=== PATIENT | female | born 1950 | race Caucasian/White ===

== ENCOUNTER → 2022-08-02 | Outpatient (CLI) | payer MEDICARE, OTHER ==
--- NOTE | 2022-08-02 10:19 | MR ---
MRI pancreas and abdomen with contrast. HISTORY: Pancreatic cyst. COMPARISON: None. TECHNIQUE: Multiecho multiplanar images of the abdomen and pancreas were obtained with contrast. FINDINGS: In the body and head of the pancreas, multiple cysts are identified the largest of which is approxim ately 9 to 10 mm. 2 or 3 other adjacent tiny cysts are seen. There are no solid pancreatic masses or pancreatic enhancement. The liver is unremarkable without focal mass or organomegaly. There are surgical absence of the gallbladder and no biliary ductal dilatation. There are no focal masses or enlargement of the adrenal glands or spleen. The kidneys excrete contrast promptly and symmetrically. There are multiple renal cysts in particular there is a very large exophytic cyst of the superior pole the left kidney measuring approximately 10 cm in size. Caliber the abdominal aorta is normal. The bowel loops are normal in caliber. No inflammatory changes are identified in the mesentery. There is no free intraperitoneal air or fluid. IMPRESSION: 1. Multiple small pancreatic cysts in the body and head of the pancreas the largest of which is 90 10 mm. There are no solid pancreatic masses and no pancreatic pathological enhancement.. 2. Multiple renal cysts with a very large exophytic cyst of the superior pole of the left kidney
== END | disposition home or self-care (01) ==
LOC: RADMRIMAIN 08:51
PROVIDERS: ATTEND Internal Medicine Gastroenterology
DX: K86.2 Cyst of pancreas (principal); N28.1 Cyst of kidney, acquired
CPT/HCPCS: 74183; A9585

== ENCOUNTER → 2022-12-09 | Outpatient (CLI) | payer MEDICARE, OTHER ==
--- NOTE | 2022-12-09 10:44 | BD ---
EXAMINATION TYPE: Axial Bone Density DATE OF EXAM: 12/09/2022 CLINICAL HISTORY: 72 years old Female. ICD-10 CODE: Z78.0 POST MENOPAUSAL Height: 63in Weight: 164lb FRAX RISK QUESTIONS: Secondary Osteoporosis: RISK FACTORS HISTORY OF: Active: yes Postmenopausal woman: yes Take estrogen and/or progesterone medications: none current, pt unsure about in the past MEDICATIONS: Thyroid Medications: Which medication: Synthroid How Long: about 10 years Additional Medications: cardiac med, cholesterol med, vitamin d Additional History: EXAM MEASUREMENTS: Bone mineral densitometry was performed using the [employer] Android System. Bone mineral density as measured about the Lumbar spine is: ----- L1-L4(G/cm2): 1.134 T Score Values are as follows: ----- L1: -0.8 ----- L2: -1.2 ----- L3: 1.0 ----- L4: -0.8 ----- L1-L4: -0.4 Z Score Values are as follows: ----- L1: 0.6 ----- L2: 0.2 ----- L3: 2.4 ----- L4: 0.6 ----- L1-L4: 1.0 First dexa at [facility] Bone mineral density about the R hip (g/cm2): 0.881 Bone mineral density about the L hip (g/cm2): 0.833 T Score values are as follows: -----R Neck: -1.7 -----L Neck: -1.7 -----R Total: -1.0 -----L Total: -1.4 Z Score values are as follows: -----R Neck: -0.2 -----L Neck: -0.1 -----R Total: 0.3 -----L Total: 0.0 FRAX%s: The graph provided illustrates a 11.1% chance for a major osteoporotic fx and a 2.1% chance f or the hips probability for fx in 10 years time. IMPRESSION: Osteopenia (T Score between -2.5 and -1). There is slightly increased risk of fracture and the patient may be considered for treatment. Re-Screen 2-5 years. NOTE: T-SCORE=SD OF THE YOUNG ADULT MEAN.
--- NOTE | 2022-12-10 09:12 | MM ---
Reason for Exam: Screening (asymptomatic). Last mammogram was performed 1 year(s) and 3 month(s) ago. Patient History: Menarche at age 11. First Full-Term at age 17. Postmenopausal. Cyst Aspiration on the Left side. Maternal aunt had breast cancer at or over age 50. Risk Values: Penelope 5 year model risk: 1.4%. NCI Lifetime model risk: 3.6%. Prior Study Comparison: 09/17/2020 Bilateral Screening Mammogram, Unknown. 09/19/2021 Bilateral Screening Mammogram, Unknown. Tissue Density: The breast tissue is heterogeneously dense. This may lower the sensitivity of mammography. Findings: Analyzed By CAD. There are stable small circumscribed round masses bilaterally redemonstrated. There is however enlarging 8 mm round mass in the anterior right breast centrally. Overall Assessment: Incomplete: need additional imaging evaluation, BI-RAD 0 Management: Diagnostic Breast Ultrasound of the right breast. Targeted ultrasound right breast. Electronically signed and approved by: Rober Shipley M.D.
== END | disposition home or self-care (01) ==
LOC: RADMAMWWP 07:20
PROVIDERS: ATTEND Family Medicine
DX: Z12.31 Encounter for screening mammogram for malignant neoplasm of breast (principal); M85.89 Other specified disorders of bone density and structure, multiple sites; Z78.0 Asymptomatic menopausal state; Z80.3 Family history of malignant neoplasm of breast
CPT/HCPCS: 77063; 77067; 77080

== ENCOUNTER → 2022-12-12 | Outpatient (CLI) | payer MEDICARE, OTHER ==
--- NOTE | 2022-12-12 11:20 | USB ---
Reason for Exam: Additional evaluation requested from abnormal screening. Patient History: Menarche at age 11. First Full-Term at age 17. Postmenopausal. Cyst Aspiration on the Left side. Maternal aunt had breast cancer at or over age 50. Risk Values: Penelope 5 year model risk: 1.4%. NCI Lifetime model risk: 3.6%. Prior Study Comparison: 09/17/2020 Bilateral Screening Mammogram, Unknown. 09/19/2021 Bilateral Screening Mammogram, Unknown. 12/09/2022 Bilateral MG 3D screening mammo w/cad, [facility]. Findings: The periareolar of the right breast, the axilla of the right breast and the retroareolar of the right breast were scanned. Targeted ultrasound of the right breast was obtained with additional evaluation of the nipple and axilla tail.. Ductal ectasia at the nipple demonstrated without intraductal lesion identified. There is a round circumscribed anechoic cyst at 7:00 2 cm from the nipple measuring up to 0.4 cm without internal color flow. There is a cyst/cluster of cysts in the right breast 1:00 to size of the nipple measuring 0.8 x 0.5 x 0.9 cm without internal color flow.Targeted ultrasound of the right breast was obtained with additional evaluation of the nipple and axilla tail.. Ductal ectasia at the nipple demonstrated without intraductal lesion identified. There is a round circumscribed anechoic cyst at 7:00 2 cm from the nipple measuring up to 0.4 cm without internal color flow. There is a cyst/cluster of cysts in the right breast 1:00 2 cm from the nipple measuring 0.8 x 0.5 x 0.9 cm without internal color flow. Overall Assessment: Benign, BI-RAD 2 Management: Screening Mammogram of both breasts in 1 year. A clinical breast exam by your physician is recommended on an annual basis and results should be correlated with mammographic findings. This exam should not preclude additional follow-up of suspicious palpable abnormalities. Results were given to the patient verbally at the time of exam. Electronically signed and approved by: Bakari Bailey D.O.
== END | disposition home or self-care (01) ==
LOC: RADUSWWP 10:36
PROVIDERS: ATTEND Family Medicine
DX: R92.8 Other abnormal and inconclusive findings on diagnostic imaging of breast (principal); Z78.0 Asymptomatic menopausal state; Z80.3 Family history of malignant neoplasm of breast

== ENCOUNTER → 2023-07-22 | Outpatient (CLI) | payer MEDICARE, OTHER ==
--- NOTE | 2023-07-25 10:55 | MR ---
EXAMINATION TYPE: MR pancreas wo/w con DATE OF EXAM: 07/22/2023 9:34 AM CLINICAL INDICATION:Female, 72 years old with history of K86.2 CYST OF PANCREAS; [facility], Pancreatic cyst s, follow up comparison to prior MRI. COMPARISON: MRI 08/02/2022. TECHNIQUE: Multiplanar multi-sequence imaging was performed without contrast. Post contrast imaging was performed. Post IV contrast subtraction images were also submitted for review. IV Contrast: 7.5 cc Gadavist FINDINGS: LOWER CHEST: No gross irregularity. ABDOMEN Liver: No evidence for hepatic steatosis or cirrhosis. Gallbladder and Bile ducts: No evidence for ductal dilation, or biliary stricture or evidence of chol edocholithiasis. The gallbladder is within normal limits. Pancreas: No ductal dilation. No evidence for solid mass. High T2 signal cystic lesions throughout th e pancreatic neck the largest measuring up to 11 mm is similar given differences in slice selection c ompared to prior on 08/02/2022. No significant postcontrast enhancement identified. Spleen: Normal for size. Adrenal glands: Unremarkable. Kidneys: High T2 signal cysts are seen throughout the kidneys. One on the right demonstrates thin sep tation. No abnormal postcontrast enhancement identified. No evidence for obstructive uropathy. No dao picious renal masses. Stomach and Bowel: No evidence for bowel wall thickening or evidence for obstruction. Scattered colon ic diverticula are present. Small hiatal hernia. Peritoneum: No evidence of pneumoperitoneum or free fluid. Vasculature: Aneurysmal dilation of the right renal artery with saccular aneurysm measuring 19 x 17 x 22 mm. This may be fractionally larger compared to prior where it measured 19 x 15 x 22 mm alternati vely the differences may be due to slice selection MRI technique. Musculoskeletal: The osseous structures appear intact. Lymph Nodes: No gross evidence for lymphadenopathy. Abdominal wall: Fat-containing umbilical hernia. IMPRESSION: 1. Pancreatic cysts which are not significantly changed compared to prior. No abnormal postcontrast enhancement. Findings favored sequela prior. The transverse intraductal papillary mucinous neoplasms. Consider surveillance MRI MRCP in one year with IV contrast. 2. 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 Vascular surgery consultat ion recommended. 3. Bilateral Bosniak type I-type II renal cysts. 4. Colonic diverticulosis. 5. Small hiatal hernia.
== END | disposition home or self-care (01) ==
LOC: RADMRIMAIN 08:27
PROVIDERS: ATTEND Internal Medicine Gastroenterology
DX: K86.2 Cyst of pancreas (principal); N28.1 Cyst of kidney, acquired; K57.30 Diverticulosis of large intestine without perforation or abscess without bleeding; K44.9 Diaphragmatic hernia without obstruction or gangrene
CPT/HCPCS: 74183; A9585

== ENCOUNTER → 2023-09-21 | Outpatient (CLI) | payer MEDICARE, OTHER ==
[2023-09-21 13:53] LABS: African American GFR (CKD) >90 (>60 ml/min/1.73 sqM); Blood Urea Nitrogen 20 mg/dL (7-17); Non-African American GFR(CKD) 90 (>60 ml/min/1.73 sqM)
--- NOTE | 2023-09-21 14:52 | CT ---
EXAMINATION TYPE: CT angio chest CT DLP: 639.30 mGycm, Automated exposure control for dose reduction was used. DATE OF EXAM: 09/21/2023 2:33 PM COMPARISON: MRI 07/22/2023. CLINICAL INDICATION:Female, 73 years old with history of I71.10 THORACIC AORTIC ANEURYSM; Thoracic ao rtic aneurysm w/out rupture TECHNIQUE/CONTRAST: CTA scan of the thorax is performed with IV Contrast, patient injected with 100 mL of Isovue 370, MIP images are created and reviewed these are created on a separate workstation.. FINDINGS: Lungs/Pleura: No evidence of focal consolidation, pleural effusion or pneumothorax. Airway: Large airways are patent. Heart: Heart is within normal limits for size. Vasculature: No evidence for intramural hematoma on noncontrast imaging. No evidence of intimal flap to suggest dissection. No aneurysm identified. Scattered atherosclerotic disease. Saccular aneurysm i s some involving the right renal artery with peripheral calcification measuring up to 19 mm. Mediastinum: No gross evidence of adenopathy. Musculoskeletal: No acute osseous abnormalities Soft Tissues: Unremarkable. Lower neck: No significant findings. Upper Abdomen: Bilateral renal cyst partially visualized. What is visualized and is similar to MRI the gallbladder surgically absent. IMPRESSION: 1. No evidence for aortic aneurysm. The ascending and descending thoracic aorta are within normal li mits for size. No evidence for occlusion or pulmonary embolus. No evidence for dissection. 2. Right renal artery saccular aneurysm measuring up to 19 mm as seen on prior MRI. Vascular surgery consultation recommended for management. Follow up recommendations for incidental pulmonary nodules, if there are any, are per [employer] or [employer].
== END | disposition home or self-care (01) ==
LOC: RADCTMAIN 06-29 14:04
PROVIDERS: ATTEND Internal Medicine Interventional Cardiology
DX: I71.10 Thoracic aortic aneurysm, ruptured, unspecified (principal); I72.2 Aneurysm of renal artery
CPT/HCPCS: 82565; 84520; 71275; 36415; Q9967

== ENCOUNTER → 2023-12-21 | Outpatient (CLI) | payer MEDICARE, OTHER ==
--- NOTE | 2023-12-22 19:28 | MM ---
Reason for Exam: Screening (asymptomatic). Last screening mammogram was performed 12 month(s) ago. Patient History: Menarche at age 11. First Full-Term at age 17. Hysterectomy at age 35. Postmenopausal. Patient used Hormonal Contraceptives for 7 years. Cyst Aspiration on the Left side. Maternal aunt had breast cancer at or over age 50. Risk Values: Penelope 5 year model risk: 1.4%. NCI Lifetime model risk: 3.4%. Prior Study Comparison: 09/17/2020 Bilateral Screening Mammogram, Unknown. 09/19/2021 Bilateral Screening Mammogram, Unknown. 12/09/2022 Bilateral MG 3D screening mammo w/cad, [facility]. Tissue Density: There are scattered areas of fibroglandular density. Findings: Analyzed By CAD. Bilateral chronic nodularity. There is no suspicious group of microcalcifications or new suspicious mass in either breast. Overall Assessment: Benign, BI-RAD 2 Management: Screening Mammogram of both breasts in 1 year. . Patient should continue monthly self-breast exams. A clinical breast exam by your physician is recommended on an annual basis. This exam should not preclude additional follow-up of suspicious palpable abnormalities. Note on Penelope scores and lifetime risk: 1. A Penelope score greater than 3% is considered moderate risk. If this is the case, consider specialist referral to assess eligibility for a risk reducing agent. 2. If overall lifetime risk for the development of breast cancer is 20% or higher, the patient may qualify for future screening with alternating mammogram and breast MRI. Electronically signed and approved by: Jere Morales M.D. Radiologist
== END | disposition home or self-care (01) ==
LOC: RADMAMWWP 10:09
PROVIDERS: ATTEND Family Medicine
DX: Z12.31 Encounter for screening mammogram for malignant neoplasm of breast (principal); Z78.0 Asymptomatic menopausal state; Z80.3 Family history of malignant neoplasm of breast
CPT/HCPCS: 77063; 77067

== ENCOUNTER 2024-03-14 07:15 | Day surgery (SDC) | payer MEDICARE, OTHER ==
[2024-03-14] MEDS: EMPTY BAG 1 BAG with SODIUM CHLORIDE 0.9% 1,000 ML IV SCH (07:22)
[2024-03-14] MEDS: IV FLUID CONTINUATION 1,000 ML IV ONE (07:23)
[2024-03-14 07:51] LABS: Basophils % (A) 0 %; Eosinophils # (A) 0.1 k/uL (0-0.7); Eosinophils % (A) 1 %; HGB 14.6 gm/dL (11.4-16.0); Lymphocytes # (A) 1.1 k/uL (1.0-4.8); Lymphocytes % (A) 14 %; MCH 29.3 pg (25.0-35.0); MCHC 31.8 g/dL (31.0-37.0); MCV 91.9 fL (80.0-100.0); Mean Platelet Volume 7.9; Monocytes # (A) 0.1 k/uL (0-1.0); Monocytes % (A) 1 %; Neutrophils # (A) 6.9 k/uL (1.3-7.7); Neutrophils % (A) 84 %; Platelet Count 350 k/uL (150-450); RDW 13.4 % (11.5-15.5); WBC 8.3 k/uL (3.8-10.6)
[2024-03-14] MEDS ORDERED: LIDOCAINE 1% INJ 10MG/ML (20 ML MDV) ONE (08:18)
[2024-03-14] MEDS ORDERED: HEPARIN SODIUM 1,000 UN/ML (10ML VL) ONE (08:24)
[2024-03-14] MEDS ORDERED: fentaNYL (PF) 50 MCG/ML 2 ML AMP ONE (08:24)
[2024-03-14] MEDS ORDERED: diphenhydrAMINE 50 MG/ML 1 ML VIAL ONE (08:25)
[2024-03-14 08:26] LABS: African American GFR (CKD) >90 (>60 ml/min/1.73 sqM); Anion Gap 10 mmol/L; Blood Urea Nitrogen 13 mg/dL (7-17); Carbon Dioxide 21 mmol/L (22-30); Chloride 111 mmol/L (98-107); Glucose 165 mg/dL (74-99); Non-African American GFR(CKD) >90 (>60 ml/min/1.73 sqM); Potassium 3.9 mmol/L (3.5-5.1); Sodium 142 mmol/L (137-145)
[2024-03-14] MEDS: diphenhydrAMINE 50 MG/ML 1 ML VIAL IVP ONE (08:37)
[2024-03-14] MEDS: MIDAZOLAM 2 MG/2 ML VIAL IVP ONE (08:37)
[2024-03-14] MEDS: fentaNYL (PF) 50 MCG/ML 2 ML AMP IVP ONE (08:37)
[2024-03-14] MEDS: LIDOCAINE 1% INJ 10MG/ML (20 ML MDV) SQ ONE (08:37)
[2024-03-14] MEDS: HEPARIN SODIUM 1,000 UN/ML (10ML VL) IV ONE (08:55)
[2024-03-14] MEDS: IOPAMIDOL-370 200ML BTL INJ ONE ×2 (09:59)
--- NOTE | 2024-03-14 10:25 | IR ---
EXAMINATION TYPE: IR angio renal RT Intraoperative/procedural fluoroscopic services were provided. CLINICAL INDICATION:Female, 73 years old with history of RT RENAL ANGIO, 19.1 MINS FLT, 1.2MGY; , [facility] Total fluoroscopy time is 19.1 min. DAP: 30.4 Gycm2 Please see the operative/procedural note for further details.
--- NOTE | 2024-03-14 10:30 | P.OP ---
Date of Procedure: 03/14/24 Preoperative Diagnosis: Right renal artery aneurysm 2.9 cm Postoperative Diagnosis: Same Procedure(s) Performed: Ultrasound-guided right common femoral artery access Aortogram Selective right renal artery angiogram second order Coil embolization of right renal artery aneurysm with Azur CX coils x 5 Percutaneous closure with Vascade device Conscious sedation- 1 hour and 37 minutes Implants: CX coil 20 mm x 39 cm CX coil 8 mm x 24 cm x4 Anesthesia: local Surgeon: Ko Antunez Estimated Blood Loss (ml): 5 Pathology: none sent Condition: stable Disposition: PACU Indications for Procedure: 73-year-old female with history of right renal artery aneurysm measuring 2.9 cm on previous MRI imaging presents to the hospital for elective aortogram, selective renal artery angiogram and possible coil embolization versus stenting. Operative Findings: Large renal artery aneurysm on the right just after a branch point with multiple outflow branches at the mouth of the aneurysm Description of Procedure: After written and informed consent was obtained for the patient and all risk, benefits and complications were described the patient was brought to the Communications Systems Engineer and laid in a supine position. The area of the groins were prepped and draped in usual sterile fashion. Timeout was performed in normal fashion with all parties in agreement. Local anesthetic was then infused overlying the right femoral artery. Under ultrasound guidance the right common femoral artery was accessed with a multipurpose needle and a 6 Hungarian sheath was placed in normal fashion utilizing Seldinger technique. Patient was then administered 3000 units of heparin. 035 Glidewire was then placed into the aorta followed by pigtail catheter. Aortogram was obtained demonstrating patent aorta and bilateral renal arteries with right renal artery large aneurysm noted distally at the hilum/branch point for the inferior and superior lobes. Bilateral iliac arteries are patent and without any significant calcific disease or stenosis. Utilizing a Cobra catheter after the pigtail catheter was removed the right renal artery was accessed. Guidewire was then placed past the aneurysm and the Cobra catheter was placed within the right renal artery. Selective angiogram was then obtained demonstrating patent renal artery with large 2.9 cm renal aneurysm noted with branch points coming off the mouth of the aneurysm both to the superior and inferior lobe. The Cobra catheter was then placed across the aneurysm and a Ferrer wire was placed. 6 Hungarian destination catheter 65 cm was then placed into the renal artery in normal fashion after removal of the short 6 Hungarian sheath. A glide catheter was then placed within the aneurysmal sac and sac angiogram was obtained. There was flow coming from the top of the aneurysm sac to multiple vessels and therefore unable to place a covered stent due to the likelihood of occluding the inferior lobe of the kidney. Due to this a glide catheter was then placed into the aneurysmal sac and coil embolization was then performed at the apex of the sac moving up towards the mouth with Azur CX coils. 5 coils were utilized in its entirety and good sealing of the aneurysm was noted with maintaining flow to the inferior and superior lobe of the kidney. Once completed all wires and catheters were removed. The sheath was then replaced with a short 6 Hungarian sheath and a Vascade closure device was placed in normal fashion for hemostasis. Pressure was placed as well. Once hemostatic the area was cleansed and dressings were placed. The patient tolerated the procedure well and had palpable DP and PT pulses at the conclusion of the procedure.
[2024-03-14 10:41] VITALS: RESP 16
[2024-03-14 13:52] VITALS: BP 155/81; PULSE 96
== END 2024-03-14 14:15 | disposition home or self-care (01) ==
LOC: CATHCVL 07:15
PROVIDERS: ATTEND Surgery
DX: I72.2 Aneurysm of renal artery (principal)
CPT/HCPCS: 37242; 80048; 85025; C1769 ×3; C1894 ×2; C1725; J2250; J1200; J2001; J3010; J1644; Q9967

== ENCOUNTER → 2024-03-22 | Outpatient (CLI) | payer MEDICARE, OTHER ==
[2024-03-22 16:34] LABS: Albumin 4.2 g/dL (3.8-4.9); BUN/Creat Ratio 17.71 Ratio (12.00-20.00); Blood Urea Nitrogen 12.4 mg/dL (9.0-27.0); Calcium 9.1 mg/dL (8.7-10.3); Carbon Dioxide 23.7 mmol/L (21.6-31.8); Chloride 107 mmol/L (96-109); Glucose 92 mg/dL (70-110); Potassium 4.1 mmol/L (3.5-5.5); Sodium 141 mmol/L (135-145)
== END | disposition home or self-care (01) ==
LOC: LABWHC1 11:48
PROVIDERS: ATTEND Surgery
DX: Z13.228 Encounter for screening for other metabolic disorders (principal); N28.9 Disorder of kidney and ureter, unspecified; M54.50 Low back pain, unspecified
CPT/HCPCS: 36415; 80069

== ENCOUNTER → 2024-07-25 | Outpatient (CLI) | payer MEDICARE, OTHER ==
--- NOTE | 2024-07-25 15:27 | MR ---
EXAMINATION TYPE: MR pancreas wo/w con DATE OF EXAM: 07/25/2024 2:54 PM INDICATION: Patient age:Female; 73 years old; Reason for study: K86.2 CYST OF PANCREAS; [facility]. COMPARISON: MR pancreas 07/22/2023, 08/02/2022 TECHNIQUE: Multiplanar multi-sequence imaging was performed without and with IV contrast. The patien t was given 7 ccs of Gadavist intravenously and dynamic imaging was performed. Post IV contrast subtr action images were also submitted for review. FINDINGS: LOWER CHEST: No gross irregularity. ABDOMEN Liver: No evidence for hepatic steatosis or cirrhosis. Gallbladder and Bile ducts: No evidence for ductal dilation, or biliary stricture or evidence of chol edocholithiasis. The gallbladder is surgically absent. Common bile duct is normal caliber measuring 7 mm at the pancreatic head. Mild stable prominence of the common hepatic duct measuring up to 12 mm w hich is likely related to cholecystectomy changes. Pancreas: No ductal dilation. No evidence for solid enhancing mass. Redemonstration of T2 hyperintens e signal cystic lesions throughout the pancreatic neck. Stable size of pancreatic neck cystic lesion measuring up to 12 mm (series 701, image 34). Increased size of pancreatic head cystic lesion measuri ng 14 mm (series 701, image 32). Previously measured 10 mm. Increasing size of pancreatic body 7 mm T 2 hyperintense lesion (series 301, image 11), previously 4 mm. Remaining T2 hyperintense lesions are relatively stable from prior exam. No enhancement or mural nodularity identified within either of the se lesions. Spleen: Normal for size. Adrenal glands: Unremarkable. Kidneys: Several stable T2 hyperintense thin wall cysts are seen throughout the kidneys. One on the r ight demonstrates thin septation again. Largest cyst within the superior pole of the left kidney emerald ures up to 10.2 cm. Largest within the superior pole of the right kidney with thin septation measures up to 5.7 cm. No abnormal postcontrast enhancement identified. No evidence for obstructive uropathy. No suspicious renal masses. Stomach and Bowel: No evidence for bowel wall thickening or evidence for obstruction. Scattered colon ic diverticula are present. Small hiatal hernia. Peritoneum: No evidence of pneumoperitoneum or free fluid. Vasculature: Aneurysmal dilation of the right renal artery with saccular aneurysm measuring 19 x 20 x 24 mm, previously 19 x 17 x 22 mm. Retroaortic left renal vein. No abdominal aortic aneurysm. Musculoskeletal: The osseous structures appear intact. Lymph Nodes: No evidence for lymphadenopathy. Abdominal wall: Tiny fat containing umbilical hernia. IMPRESSION: 1. Redemonstration of T2 hyperintense pancreatic cystic lesions with a couple having increased in si ze from prior examination. The remaining are stable. No mural nodularity or enhancement identified. R ecommend further evaluation with endoscopic ultrasound versus 6 month follow-up MRI. 2. Marginal increase in size of right renal artery saccular aneurysm measuring up to 24 mm, previous ly 22 mm Vascular surgery consultation is recommended. 3. Bilateral Bosniak type I-type II renal cysts redemonstrated. 4. Colonic diverticulosis. 5. Small hiatal hernia. [facility], , 07/25/2024 3:24 PM
--- NOTE | 2024-07-25 16:27 | XR ---
EXAMINATION TYPE: XR cervical spine comp DATE OF EXAM: 07/25/2024 3:04 PM COMPARISON: None CLINICAL INDICATION: Female, 73 years old with history of K86.2 CYST OF PANCREAS M54.12 RADICULOPATHY , CERVI; [facility] TECHNIQUE: The cervical spine was imaged in frontal, lateral, odontoid and bilateral oblique. FINDINGS: The osseous structures show normal alignment without evidence of an acute fracture. There are osteoph ytes noted throughout the cervical spine on the anterior and lateral aspects of the vertebral bodies. The intervertebral disk spaces are narrowed at multiple levels. Pedicles are intact. Soft tissues a re within normal limits. The odontoid appears intact. IMPRESSION: 1. No fracture or dislocation. 2. Mild degenerative disc disease changes of the cervical spine. [facility], , 07/25/2024 4:25 PM
== END | disposition home or self-care (01) ==
LOC: RADMRIMAIN 13:39
PROVIDERS: ATTEND Internal Medicine Gastroenterology
DX: K86.2 Cyst of pancreas (principal); M54.12 Radiculopathy, cervical region
CPT/HCPCS: 72050; 74183; A9585

== ENCOUNTER → 2024-12-28 | Outpatient (CLI) | payer MEDICARE, OTHER ==
--- NOTE | 2024-12-28 13:32 | MR ---
EXAMINATION TYPE: MR cervical spine wo con DATE OF EXAM: 12/28/2024 12:33 PM COMPARISON: None. CLINICAL INDICATION: Female, 74 years old with history of M54.2 CERVICALGIA [id number] LOW BACK PAIN, Sev ere neck and bilat arm pain, especially in the RT shoulder area x 6 months TECHNIQUE: Multiplanar multiecho imaging on a 3.0 Katelyn magnet is performed through the cervical spin e. IV Contrast: mL (None, if empty) FINDINGS: The craniovertebral junction is normal. Vertebral body alignment is normal. T1-2: There is a tiny central protrusion with mild anterior thecal sac compression. No spinal canal s tenosis or cord contact is evident. C7-T1: There is small broad-based mild disc bulge with anterior thecal sac contact. No cord contact or spinal canal stenosis present. Neural foramen are patent. C6-7: Mild disc bulge has intrathecal sac flattening. No AP spinal canal stenosis. No cord contact is evident. No foraminal narrowing. Mild disc height loss is present greater in the posterior aspect. C5-6: There is loss of disc height to this level. Minimal residual disc bulge is present slightly gre ater to the right paracentral region. No cord contact or spinal canal stenosis present. Severe right foraminal narrowing from uncovertebral joint hypertrophy is on the right. Some more moderate foramina l narrowing is on the left. C4-5: No focal disc herniation or significant disc bulge is evident. No spinal canal stenosis or yasmine ral foraminal stenosis is present. C3-4: Minimal central disc bulge is present with anterior thecal sac contact. No spinal canal stenosi s or cord contact evident. Neural foramen are patent. C2-3: There may be a small central subligamentous disc herniation with mild anterior thecal sac compr ession. No cord contact or spinal canal stenosis. Neural foramen are patent. IMPRESSION: 1. Small central subligamentous disc herniation C2-3 with mild anterior thecal sac compression. 2. Minimal disc bulge C3-4. 3. Degenerative disc changes with loss of disc height C5-6. Mild residual disc bulge to the right par acentral region without stenosis. Severe uncovertebral joint hypertrophy with severe foraminal stenos is at this C5-6 level 4. Mild disc bulge C6-7 without AP spinal canal stenosis loss of disc height is present at C6-7. 5. Mild disc bulge C7-T1 without stenosis. [facility], Workstation: [facility], 12/28/2024 1:30 PM
== END | disposition home or self-care (01) ==
LOC: RADMRIMAIN 10:43
PROVIDERS: ATTEND Family Medicine
DX: M50.323 Other cervical disc degeneration at C6-C7 level (principal); M50.21 Other cervical disc displacement, high cervical region; M47.812 Spondylosis without myelopathy or radiculopathy, cervical region; M99.71 Connective tissue and disc stenosis of intervertebral foramina of cervical region
CPT/HCPCS: 72141

== ENCOUNTER → 2024-12-29 | Outpatient (CLI) | payer MEDICARE, OTHER ==
--- NOTE | 2024-12-31 12:50 | MR ---
EXAMINATION TYPE: MR lumbar spine wo con DATE OF EXAM: 12/29/2024 7:58 PM COMPARISON: None. CLINICAL INDICATION: Female, 74 years old with history of M54.50, Pain in arms, shoulders and back of legs x6 months TECHNIQUE: Multiplanar, multisequence images of the lumbar spine were acquired. IV Contrast: mL (None, if empty) FINDINGS: Cord ends at the L1-L2 level. L5-S1: No focal disc herniation or significant disc bulge. No spinal canal stenosis. Neural foramen are patent. Facet hypertrophy and ligamentum flavum laxity present with mild posterior lateral thec al sac compression, greater on the left. L4-L5: No focal disc herniation or significant disc bulge. No spinal canal stenosis. Neural foramen are patent. Facet hypertrophy is present with some mild posterior lateral thecal sac compression gr eater on the right. L3-L4: No focal disc herniation or significant disc bulge. No spinal canal stenosis. Neural foramen are patent. Disc space narrowing is present. L2-L3: No focal disc herniation or significant disc bulge. No spinal canal stenosis. Neural foramen are patent. Mild disc space narrowing is present L1-L2: No focal disc herniation or significant disc bulge. No spinal canal stenosis. Neural foramen are patent. T12-L1: No focal disc herniation or significant disc bulge. No spinal canal stenosis. Neural forame n are patent. Large cysts on the left kidney. Multiple smaller cortical renal cysts are present bilaterally. There is some heterogeneity within the vertebral bodies which may be some marrow conversion. Bone scan can be performed as clinically indicated. IMPRESSION: 1. Facet hypertrophy lower lumbar spine has some mild posterior lateral thecal sac compression. 2. Mild degenerative disc change. [facility], , 12/31/2024 12:48 PM
== END | disposition home or self-care (01) ==
LOC: RADMRIMAIN 18:41
PROVIDERS: ATTEND Family Medicine
DX: M51.360 Other intervertebral disc degeneration, lumbar region with discogenic back pain only (principal); M47.816 Spondylosis without myelopathy or radiculopathy, lumbar region; M54.2 Cervicalgia
CPT/HCPCS: 72148

== ENCOUNTER → 2025-02-27 | Outpatient (CLI) | payer MEDICARE, OTHER ==
--- NOTE | 2025-02-27 15:50 | US ---
EXAMINATION TYPE: US venous doppler duplex LE BI DATE OF EXAM: 02/27/2025 3:19 PM COMPARISON: NONE CLINICAL INDICATION: Female, 74 years old with history of M79.662 PAIN IN LEFT LOWER LEG; Pain in LE, on thinners, patient denies any other signs, symptoms, or relevant history , Pain TECHNIQUE: The lower extremity deep venous system is examined utilizing real time linear array sonog julianne with graded compression, color doppler sonography, and spectral doppler. SIDE PERFORMED: Bilateral FINDINGS: VESSELS IMAGED: Common Femoral Vein Deep Femoral Vein Greater Saphenous Vein * Femoral Vein Popliteal Vein Small Saphenous Vein * Proximal Calf Veins (* superficial vessels) Trace Houston's cyst on both sides. Right Leg: Negative for DVT, Color Doppler imaging shows patency of the vessels. Spectral waveforms are within normal limits. Left Leg: Negative for DVT, Color Doppler imaging shows patency of the vessels. Spectral waveforms a re within normal limits. IMPRESSION: 1. No evidence for DVT in the bilateral lower extremities, imaged from the groin to the upper calves. 2. Trace Houston's cyst on both sides. [facility], , 02/27/2025 3:47 PM
== END | disposition home or self-care (01) ==
LOC: RADUSWWP 15:01
PROVIDERS: ATTEND Internal Medicine Interventional Cardiology
DX: M79.662 Pain in left lower leg (principal); M71.21 Synovial cyst of popliteal space [Baker], right knee; M71.22 Synovial cyst of popliteal space [Baker], left knee
CPT/HCPCS: 93970

== ENCOUNTER → 2025-03-13 | Outpatient (CLI) | payer MEDICARE, OTHER ==
--- NOTE | 2025-03-13 10:28 | MM ---
Reason for Exam: Screening (asymptomatic). Last mammogram was performed 1 year(s) and 3 month(s) ago. Patient History: Menarche at age 11. First Full-Term at age 17. Hysterectomy at age 35. Postmenopausal. Patient used Hormonal Contraceptives for 7 years. Cyst Aspiration on the Left side. Maternal aunt had breast cancer, age 70. Risk Values: Penelope 5 year model risk: 1.4%. NCI Lifetime model risk: 3.2%. Prior Study Comparison: 09/19/2021 Bilateral Screening Mammogram, Unknown. 12/09/2022 Bilateral MG 3D screening mammo w/cad, [facility]. 12/21/2023 Bilateral MG 3D screening mammo w/cad, [facility]. Tissue Density: There are scattered areas of fibroglandular density. Findings: Analyzed By CAD. There are tiny benign-appearing round calcifications redemonstrated scattered throughout the bilateral breasts. There is stable 4 to 5 mm small circumscribed round mass in the left breast. There is no suspicious new group of microcalcifications or new suspicious mass in either breast. Overall Assessment: Benign, BI-RAD 2 Management: Screening Mammogram of both breasts in 1 year. . Patient should continue monthly self-breast exams. A clinical breast exam by your physician is recommended on an annual basis. This exam should not preclude additional follow-up of suspicious palpable abnormalities. Note on Penelope scores and lifetime risk: 1. A Penelope score greater than 3% is considered moderate risk. If this is the case, consider specialist referral to assess eligibility for a risk reducing agent. 2. If overall lifetime risk for the development of breast cancer is 20% or higher, the patient may qualify for future screening with alternating mammogram and breast MRI. [facility], , 03/13/2025 10:25 AM. Electronically signed and approved by: Rober Shipley M.D.
== END | disposition home or self-care (01) ==
LOC: RADMAMWWP 09:53
PROVIDERS: ATTEND Family Medicine
DX: Z12.31 Encounter for screening mammogram for malignant neoplasm of breast (principal); R92.323 Mammographic fibroglandular density, bilateral breasts; R92.1 Mammographic calcification found on diagnostic imaging of breast; Z78.0 Asymptomatic menopausal state; Z80.3 Family history of malignant neoplasm of breast; Z92.0 Personal history of contraception
CPT/HCPCS: 77063; 77067